=== PATIENT | male | born 1975 | race Caucasian/White ===

== ENCOUNTER → 2023-09-29 14:51 | Outpatient (CLI) | payer OTHER, SELFPAY ==
--- NOTE | 2023-09-29 14:55 | DI.RAD.S_ITS ---
PROCEDURE: XR FOOT RT MIN 3V INDICATIONS: Right foot injury TECHNIQUE: 3views of the foot were acquired. COMPARISON: None. FINDINGS: Bones: No fractures or dislocations. No suspicious bony lesions. Soft tissues: Soft tissue swelling of the dorsum of the foot. Atherosclerotic vascular calcifications are noted. Punctate density is also seen in the lateral aspect of the foot on the oblique and frontal views; correlate with radiopaque foreign body. IMPRESSION: 1.Soft tissue swelling 2. A 1 mm punctate density lateral to the 5th metatarsal head on the frontal view and also seen on the oblique view could potentially represent a radiopaque foreign body. Correlate clinically. Dictated by: Jose Davis M.D. on 09/29/2023 at 16:05 Approved by: Jose Davis M.D. on 09/29/2023 at 16:11
== END ==
PROVIDERS: Referring Provider Nurse Practitioner Family; Visit Provider Nurse Practitioner Family
DX: S99.921A Unspecified injury of right foot, initial encounter (principal); M79.89 Other specified soft tissue disorders; X58.XXXA Exposure to other specified factors, initial encounter
CPT/HCPCS: 73630